=== PATIENT | female | born 1960 | race Hispanic/Latino ===

== ENCOUNTER 2021-06-29 10:29 | Emergency (ER) | payer MEDICARE ==
[~2021-06-29] VITALS: Ht 152.4 cm; Wt 90.3 kg
[~2021-06-29 10:29] MED LIST: PROMETHAZINE HC25 M1 PO; TYLENOL # 31 EA PO
[2021-06-29] MEDS ORDERED: KETOROLAC TROMETHAMINE 60 MG/2 ML VIAL IM ONE (10:45)
[2021-06-29] MEDS ORDERED: METHOCARBAMOL 750 MG TAB PO ONE (10:45)
[2021-06-29] MEDS ORDERED: DEXAMETHASONE 4 MG TAB PO SCH (10:45)
[2021-06-29] MEDS ORDERED: LIDOCAINE 4% PATCH TP SCH (11:00)
[2021-06-29] MEDS ORDERED: IBUPROFEN600 MG PO (12:19)
[2021-06-29 13:10] VITALS: BP 138/76
== END 2021-06-29 13:11 | disposition home or self-care (01) ==
LOC: ER 10:50
DX: M25.552 Pain in left hip (principal); I10 Essential (primary) hypertension
CPT/HCPCS: 73502; 99283; J1885; J8540

== ENCOUNTER → 2022-12-31 | Day surgery (SDC) | payer MEDICARE ==
[2022-12-19 11:17] LABS: ANION GAP 13.1 mmol/L (8-16); CALCIUM 9.5 mg/dL (8.4-10.2); CREATININE, SERUM 1.02 mg/dL (0.57-1.11); POTASSIUM 3.1 mmol/L (3.5-5.1)
[~2022-12-31] MED LIST changes: +ADVAIR 100-501 EACH INH; +AMLODIPINE BESY10 MG PO; +ATORVASTATIN CA20 MG PO; +DEXAMETHASONE SOD PHOS INJ 4 MG/ML SDV ONE; +FENTANYL CITRATE/PF 100MCG/2 ML INJ ONE; +GLYCOPYRROLATE INJ 0.2 MG/ML VIAL ONE; +IBUPROFEN600 MG PO; +KETOROLAC TROMETHAMINE 30 MG/ML VIAL ONE; +LACTATED RINGER'S 1,000 ML ONE; +LIDOCAINE HCL 2% LOCAL INJ 5 ML SDV VIAL INJ ONE; +LOSARTAN-HCTZ1 EAC1 PO; +MIDAZOLAM HCL 2 MG/2 ML VIAL ONE; +MULTI-VITAMIN1 EACH PO; +ONDANSETRON HCL INJ 2MG/ML 2ML 2 MG/ML VIAL ONE; +PROPOFOL IV EMULSION 10 MG/ML 20 ML VIAL ONE; +SEVOFLURANE INHAL SOLN 250 ML PEN BTL ONE
[2022-12-31 08:17] VITALS: BP 126/50; PULSE 79; RESP 18; O2SAT 98
== END | disposition home or self-care (01) ==
LOC: OR 05:33
PROVIDERS: ATTEND Specialist
DX: G56.01 Carpal tunnel syndrome, right upper limb (principal); I10 Essential (primary) hypertension; E78.5 Hyperlipidemia, unspecified; J45.909 Unspecified asthma, uncomplicated; Z01.810 Encounter for preprocedural cardiovascular examination; Z01.812 Encounter for preprocedural laboratory examination; Z79.899 Other long term (current) drug therapy; Z68.37 Body mass index [BMI] 37.0-37.9, adult; Z87.891 Personal history of nicotine dependence
CPT/HCPCS: 29848; 36415; 80048; 93005; J0690; J1100; J1885; J2001; J2250; J2405; J2704; J3010; J7121

== ENCOUNTER 2023-11-18 22:15 | Emergency (ER) | payer MEDICARE ==
[~2023-11-18] VITALS: Ht 152.4 cm; Wt 90.3 kg
[~2023-11-18 22:15] MED LIST changes: -DEXAMETHASONE SOD PHOS INJ 4 MG/ML SDV ONE; -FENTANYL CITRATE/PF 100MCG/2 ML INJ ONE; -GLYCOPYRROLATE INJ 0.2 MG/ML VIAL ONE; -KETOROLAC TROMETHAMINE 30 MG/ML VIAL ONE; -LACTATED RINGER'S 1,000 ML ONE; -LIDOCAINE HCL 2% LOCAL INJ 5 ML SDV VIAL INJ ONE; -MIDAZOLAM HCL 2 MG/2 ML VIAL ONE; -ONDANSETRON HCL INJ 2MG/ML 2ML 2 MG/ML VIAL ONE; -PROPOFOL IV EMULSION 10 MG/ML 20 ML VIAL ONE; -SEVOFLURANE INHAL SOLN 250 ML PEN BTL ONE
[2023-11-18 23:02] VITALS: TEMP 98.4
[2023-11-18] MEDS: TRAMADOL HCL 50 MG TAB PO STA (23:18)
[2023-11-19] MEDS ORDERED: Morphine 4mg INJECTION 4 MG/ML INJ IV STA (01:13)
[2023-11-19] MEDS ORDERED: HYDROCODON-ACE1 EA11 PO (01:31)
[2023-11-19] MEDS ORDERED: ONDANSETRON ODT4 MG PO (01:31)
[2023-11-19] MEDS: BUPIVACAINE HCL 0.25% 10ML MPF VIAL INJ ONE (01:49)
[2023-11-19] MEDS: Morphine 4mg INJECTION 4 MG/ML INJ IM STA (01:52)
[2023-11-19 02:39] VITALS: PULSE 85; RESP 16; O2SAT 94
== END 2023-11-19 02:45 | disposition home or self-care (01) ==
LOC: ER 22:20
DX: S00.83XA Contusion of other part of head, initial encounter (principal); M25.511 Pain in right shoulder; W01.0XXA Fall on same level from slipping, tripping and stumbling without subsequent striking against object, initial encounter; Y93.01 Activity, walking, marching and hiking; Y92.89 Other specified places as the place of occurrence of the external cause; I10 Essential (primary) hypertension; E78.5 Hyperlipidemia, unspecified; R94.31 Abnormal electrocardiogram [ECG] [EKG]
CPT/HCPCS: 70450; 73030; 93005; 99283; J2270

== ENCOUNTER → 2024-10-29 | Outpatient (REF) | payer MEDICARE ==
[~2024-10-29] MED LIST changes: +HYDROCODON-ACE1 EA11 PO; +ONDANSETRON ODT4 MG PO
== END ==
LOC: RAD 11:26
PROVIDERS: ATTEND Internal Medicine
DX: M25.562 Pain in left knee (principal)